=== PATIENT | female | born 1985 | race Caucasian/White ===

== ENCOUNTER 2024-07-31 19:17 | Emergency (ER) | payer OTHER, SELFPAY ==
[2024-07-31 19:27] VITALS: BP 145/102; PULSE 94; RESP 20; TEMP 36.7; O2SAT 95; BMI 30.5
--- NOTE | 2024-07-31 19:30 | ED_ITS ---
HPI - Alcohol General Chief Complaint: ETOH/Substance Use Stated Complaint: seeking detox Time Seen by Provider: 07/31/24 21:53 Source: patient Limitations: no limitations History of Present Illness ED Provider: Dayanna Peña PA-C HPI narrative: 38-year-old female with history of polysubstance abuse and alcohol abuse presents requesting detox. Patient states she is requesting detox from alcohol, she last drank this morning. She typically drinks 1-2 sleeves of vodka on a regular basis. Denies SI or HI Related Data Allergies Allergy/AdvReac Type Severity Reaction Status Date / Time No Known Allergies Allergy Verified 07/31/24 19:30 Review of Systems 2 Review of Systems: Yes all other systems are reviewed and are negative Constitutional: Constitutional: Denies fever(s) Cardiovascular: Cardiovascular: Denies chest pain Gastrointestinal: Gastrointestinal: Denies vomiting PMFSH Past Medical History Attestation statement: The following information was validated with the patient. Social History Social History Alcohol intake: current Alcohol intake frequency: 3 or more drinks per day Alcohol type: hard liquor Smoked in Last 30 Days: Yes Use of substances other than those prescribed or required for medical reasons: No Advance Directives: No Advance Directives Information Provided: No Patient : No Physical Exam ED Vital Signs: Vital Signs - 24 hr 07/31/24 19:27 07/31/24 21:16 07/31/24 22:21 Temperature 98.1 F 98 F Pulse Rate 94 81 Respiratory Rate 20 16 Blood Pressure 145/102 H 111/75 Pulse Oximetry 95 97 Oxygen Delivery Method Room Air Room Air Room Air 08/01/24 04:00 08/01/24 07:35 Temperature 98.4 F 99.0 F Pulse Rate 75 79 Respiratory Rate 16 14 Blood Pressure 128/71 142/95 H Pulse Oximetry 99 100 Oxygen Delivery Method Room Air Room Air BMI result Body Mass Index 30.5 Const Other: Awake, appears older than stated age Orientation/consciousness: patient oriented x3 Resp Other: Nonlabored respiration Cardio Other: Normal peripheral perfusion Skin Other: Warm dry no rash Neuro General: patient oriented x3, no focal motor deficits and CN's II-XI intact bilaterally Psych Other: Appears clinically sober, is cooperative Course Course Course Narrative: This is an RME: Additional HPI, ROS, PE not included below will be deferred to primary provider. RME assessment and note performed by: Sue Solomon PA-C This is 38-year-old female who presents emergency department seeking detox. Patient states that she drinks vodka, typically drinks 1-2 sleeps him nips per day. Denies history of alcohol withdrawal. 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 She states that in 2018 she was admitted to [facility] and was diagnosed with endocarditis, admission for 6 months due to complications of this. She states that she is feeling well. Last alcohol use was today. Plan: Labs, UA Reevaluation(s) Reevaluation #1: observation care revealed that the patient does meet psychiatric necessity for hospitalization. final disposition discussed with the patient. The patient completed observation care at 8am. refuses SUDE and detox does not want further help. No SI/HI. clinically sober ANIL 8am 08/01/24 Medical Decision Making Medical Decision Making MDM Narrative: 38-year-old female with history of polysubstance abuse and alcohol abuse presents requesting detox. Patient states she is requesting detox from alcohol, she last drank this morning. She typically drinks 1-2 sleeves of vodka on a regular basis. Denies SI or HI Problem: Polysubstance abuse, alcohol abuse History: Per patient I have considered the following differential diagnoses: SI, HI, decompensated psychiatric illness, drug/alcohol intoxication Plan: Patient is not suicidal or homicidal, there is no indication to hold her in the emergency department. I am sending her with a list of local facilities, she is in agreement with the plan. She will be calling her partner for a ride. Screening labs were obtained from triage I have independently reviewed the following tests: Labs: U tox positive for fentanyl and methadone, serum ethanol 211, no electrolyte abnormalities, no leukocytosis I did not realize he had a coach mechanic that is staffed during the week, we will hold the patient over in the ER for these services. Lab Data 07/31/24 19:54 07/31/24 19:54 Labs: Lab Results 07/31/24 07/31/24 Range/Units 19:54 21:26 WBC 9.7 (4.8-10.8) X10*3/uL RBC 4.47 (4.20-5.50) X10*6/uL Hgb 14.3 (12.0-16.0) g/dl Hct 41.0 (37.0-47.0) % MCV 91.7 (80.0-98.0) fL MCH 32.0 (27.0-33.0) pg MCHC 34.9 (31.0-35.0) g/dl RDW 12.5 (11.0-16.0) % Plt Count 309 (160-400) X10*3/uL MPV 8.8 L (9.4-12.3) fL Immature Gran % (Auto) 0.6 H (0.0-0.4) % Neut % (Auto) 59.4 (45-73) % Lymph % (Auto) 33.4 (20-40) % [place] % (Auto) 4.6 (2-11) % Eos % (Auto) 1.2 (0-4) % Baso % (Auto) 0.8 (0-2) % Lymph # (Auto) 3.3 (1.2-4.9) X10*3/uL [place] # (Auto) 0.5 (0.1-1.2) X10*3/uL Eos # (Auto) 0.1 (0.0-0.4) X10*3/uL Baso # (Auto) 0.1 (0.0-0.2) X10*3/uL Abs Immat Gran (auto) 0.06 H (0.00-0.03) X10*3/uL Absolute Neuts (auto) 5.8 (2.0-8.3) x10*3/uL Absolute Nucleated RBC 0.000 (0.0-0.012) X10*3/uL Nucleated RBC % (auto) 0.0 (0.0-0.2) /100WBC Sodium 142 (135-145) mmol/L Potassium 4.2 (3.3-5.1) mmol/L Chloride 111 H (96-108) mmol/L Carbon Dioxide 22 (22-29) mmol/L Anion Gap 13 (12-20) BUN 11 (9-16) mg/dL Creatinine 0.85 (0.5-1.4) mg/dL Estim Creat Clear Calc 104.5 Estimated GFR > 60 Random Glucose 95 (60-115) mg/dL Calcium 9.4 (8.4-10.2) mg/dL Total Bilirubin 0.3 (0.0-1.0) mg/dL Direct Bilirubin 0.1 (0.0-0.5) mg/dL AST 28 (5-31) U/L ALT 33 H (0-31) U/L Alkaline Phosphatase 94 (39-117) U/L Total Protein 8.0 (6.5-8.0) g/dL Albumin 4.5 (3.5-5.0) g/dL Beta HCG, Quant < 2 mIU/mL Urine Color Dark Yellow Urine Appearance Clear Urine pH 5.5 (5.0-9.0) Ur Specific [place] >= 1.030 H (1.005-1.025) Urine Protein 30 (1+) H (Neg-Trace) mg/dL Urine Glucose (UA) Negative (Negative) mg/dL Urine Ketones Trace (Negative) mg/dL Urine Blood Trace H (Negative) Urine Nitrite Negative (Negative) Ur Leukocyte Esterase Small (1+) H (Negative) Urine RBC 0-2 (0-2) /HPF Urine WBC 0-5 (0-5) /HPF Ur Squamous Epith Cells 3-5 (0-2) /HPF Urine Bacteria None Seen (None Seen) Hyaline Casts 3-5 (0-2) /LPF Urine Opiates Screen Not Detected (Not Detect) Ur Buprenorphine Scrn Not Detected (Not Detect) ng/mL Ur Oxycodone Screen Not Detected (Not Detect) ng/mL Urine Methadone Screen Positive H (Not Detect) ng/mL Urine Fentanyl Screen POSITIVE H (Not Detect) Ur Barbiturates Screen Not Detected (Not Detect) Ur Phencyclidine Scrn Not Detected (Not Detect) Ur Amphetamines Screen Not Detected (Not Detect) U Benzodiazepines Scrn Not Detected (Not Detect) Urine Cocaine Screen Not Detected (Not Detect) U Marijuana (THC) Screen Not Detected (Not Detect) Ethyl Alcohol 211 mg/dL Medications Administered Discontinued Medications Generic Name Dose Route Start Last Admin Trade Name Freq PRN Reason Stop Dose Admin Acetaminophen 975 mg 08/01/24 03:56 08/01/24 04:00 Acetaminophen 325 Mg Tablet PO 08/01/24 03:57 975 mg ONCE ONE Administration Discharge Plan Discharge Clinical Impression: Alcohol abuse Patient Disposition: Home, Self-Care Instructions: Abuse of Alcohol (ED) Additional Instructions: You have been provided with a list of local detox facilities. I would begin calling for a bed overnight. There are some institutions that will actually provide you with a ride. Print Language: Occitan
[2024-07-31 19:58] LABS: MANUAL DIFF FLAG NO
[2024-07-31 20:00] LABS: Basophils Absolute Auto 0.1 X10*3/uL (0.0-0.2); Basophils Percent Auto 0.8 % (0-2); Eosinophils Absolute Auto 0.1 X10*3/uL (0.0-0.4); Eosinophils Percent Auto 1.2 % (0-4); Hemoglobin 14.3 g/dl (12.0-16.0); Imm Gran Abs Auto 0.06 X10*3/uL (0.00-0.03); Imm Gran Pct Auto 0.6 % (0.0-0.4); Lymphocytes Absolute Auto 3.3 X10*3/uL (1.2-4.9); Lymphocytes Percent Auto 33.4 % (20-40); Mean Corpuscular HGB Conc 34.9 g/dl (31.0-35.0); Mean Corpuscular Volume 91.7 fL (80.0-98.0); Mean Platelet Volume 8.8 fL (9.4-12.3); Monocytes Absolute Auto 0.5 X10*3/uL (0.1-1.2); Monocytes Percent Auto 4.6 % (2-11); Neutrophils Absolute Auto 5.8 x10*3/uL (2.0-8.3); Neutrophils Percent Auto 59.4 % (45-73); Platelet Count 309 X10*3/uL (160-400); Red Blood Count 4.47 X10*6/uL (4.20-5.50); Red Cell Distribution Width 12.5 % (11.0-16.0); White Blood Count 9.7 X10*3/uL (4.8-10.8)
[2024-07-31 20:11] LABS: Ethanol 211 mg/dL
[2024-07-31 20:21] LABS: Alanine Aminotransferase 33 U/L (0-31); Albumin Level 4.5 g/dL (3.5-5.0); Alkaline Phosphatase 94 U/L (39-117); Anion Gap 13 (12-20); Aspartate Amino Transferase 28 U/L (5-31); Bilirubin Direct 0.1 mg/dL (0.0-0.5); Bilirubin Total 0.3 mg/dL (0.0-1.0); Blood Urea Nitrogen 11 mg/dL (9-16); Calcium 9.4 mg/dL (8.4-10.2); Carbon Dioxide 22 mmol/L (22-29); Chloride 111 mmol/L (96-108); Creatinine Clr Calc Pharmacy 104.5; Estimated Glomerular Filt Rate > 60; Glucose Random 95 mg/dL (60-115); HCG Quantitative < 2 mIU/mL; Potassium 4.2 mmol/L (3.3-5.1); Sodium 142 mmol/L (135-145)
--- NOTE | 2024-07-31 21:29 | PC.NURSE ---
Methadone 17mg bottles x4 sent home with [facility] per patient request.
[2024-07-31 21:38] LABS: Appearance Urine Clear; Color Urine Dark Yellow; Glucose Urine UA Negative (Negative); Leukocyte Esterase Urine Small (1+) (Negative); Nitrite Urine Negative (Negative); PH 5.5 (5.0-9.0); Specific Gravity - Urine >= 1.030 (1.005-1.025); UMIC TRIGGER UACC YES; Urine Blood Trace (Negative); Urine Ketones Trace mg/dL (Negative); Urine Protein 30 (1+) mg/dL (Neg-Trace)
[2024-07-31 21:46] LABS: Amphetamine Screen Urine Not Detected (Not Detect); Barbiturates, Urine Not Detected (Not Detect); Benzodiazepines Screen Urine Not Detected (Not Detect); Buprenorphine Scr Not Detected (Not Detect); Cannabinoid Screen Urine Not Detected (Not Detect); Cocaine Screen Urine Not Detected (Not Detect); Fentanyl, urine POSITIVE (Not Detect); Methadone Screen, Urine Positive (Not Detect); Opiate Screen Urine Not Detected (Not Detect); Oxycodone Screen Urine Not Detected (Not Detect); Phencyclidine Screen Urine Not Detected (Not Detect)
[2024-07-31 22:16] LABS: Bacteria Urine None Seen (None Seen); RBC Urine 0-2 /HPF (0-2); UACC Culture Trigger YES; WBC Urine 0-5 /HPF (0-5)
[2024-07-31 22:21] VITALS: BP 111/75; PULSE 81; RESP 16; TEMP 36.6; O2SAT 97
--- NOTE | 2024-07-31 22:21 | PC.NURSE ---
patient changed over to hospital attire and belongings sent to and locked up.
[2024-08-01 04:00] VITALS: BP 128/71; PULSE 75; RESP 16; TEMP 36.9; O2SAT 99
[2024-08-01] MEDS: Acetaminophen 325 MG TABLET 975 MG PO (04:00)
--- NOTE | 2024-08-01 07:26 | PC.NURSE ---
patient awake, ambulating independently with steady gait. requesting to go home, calling her boyfriend at this time to come pick her up
[2024-08-01 07:35] VITALS: BP 142/95; PULSE 79; RESP 14; TEMP 37.2; O2SAT 100
[2024-08-01 08:24] VITALS: BP 142/95; PULSE 79; RESP 14; TEMP 37.2; O2SAT 100
== END 2024-08-01 08:24 | disposition home or self-care (01) ==
PROVIDERS: Physician Assistant Medical; Emergency Provider Emergency Medicine
DX: F10.10 Alcohol abuse, uncomplicated (principal); F19.10 Other psychoactive substance abuse, uncomplicated
CPT/HCPCS: 36415; 80048; 80076; 80307; 81001; 84702; 85025; 87086; 99285